=== PATIENT | female | born 1950 | race Caucasian/White ===

== ENCOUNTER 2017-04-28 13:37 | Emergency (ER) ==
[2017-04-28 13:45] VITALS: BP 126/69; TEMP 98; BMI 24.4
--- NOTE | 2017-04-28 14:46 | ED.PDOC ---
General ED Provider: Dr. ESTEVAN SHIRLEY Chief Complaint: Extremity Swelling/Pain Stated Complaint: Recently has lt hip surgery and is in assisted for rehab. Has developed swelling in rt leg. Sent to ER for evaluation of swelling and to r /o DVT. Denies significant pain Time Seen by Physician: 14:00 Mode of Arrival: Ambulance Information Source: Alf, EMT Exam Limitations: No limitations Primary Care Provider: ESTEVAN CHEUNG Nursing and Triage Documentation Reviewed and Agree: Yes Reviewed sepsis parameters & appropriate labs ordered?: Yes System Inflammatory Response Syndrome: Not Applicable Sepsis Protocol: For patient's 13 years and over: Temp is 96.8 and below OR 101 and greater Pulse >90 BPM Resp >20/minute Acutely Altered Mental Status Are patient's symptoms suggestive of a new infection, such as: -Pneumonia -Skin, Soft Tissue -Endocarditis -UTI -Bone, Joint Infection -Implantable Device -Acute Abdominal Infection -Wound Infection -Meningitis -Blood Stream Catheter Infection -Unknown System Inflammatory Response Syndrome: Not Applicable Miscellaneous Complaint Exam - Wound Recheck/Suture Removal Exam Surgical Site: rt hip=well healed Symptoms Are: Resolved Associated Signs and Symptoms: Reports: Swelling (rt leg) Incision: Present: Normal Review of Systems - Review Of Systems Constitutional: Reports: No symptoms Eyes: Reports: No symptoms Ears, Nose, Mouth, Throat: Reports: No symptoms Respiratory: Reports: No symptoms Cardiac: Reports: No symptoms GI: Reports: No symptoms : Reports: No symptoms Musculoskeletal: Reports: No symptoms Skin: Reports: No symptoms Neurological: Reports: No symptoms Endocrine: Reports: No symptoms Hematologic/Lymphatic: Reports: No symptoms All Other Systems: Reviewed and Negative Past Medical History - Past Medical History Previously Healthy: Yes Endocrine: Reports: None Cardiovascular: Reports: None Respiratory: Reports: None Hematological: Reports: None Gastrointestinal: Reports: None Genitourinary: Reports: None Neuro/Psych: Reports: None Musculoskeletal: Reports: None Cancer: Reports: None Last Menstrual Period: menopause - Surgical History General Surgical History: Reports: None - Family History Family History: Reports: None - Social History Smoking Status: Never smoker Hx Substance Use: No Alcohol Screening: None Physical Exam - Physical Exam Appearance: Well-appearing, Obese Ill-appearing: None Pain Distress: None Eyes: ALLEN, EOMI, Conjunctiva clear ENT: Ears normal, Nose normal, Oropharynx normal Neck: Supple Respiratory: Airway patent, Breath sounds clear, Breath sounds equal Cardiovascular: RRR, Pulses normal, No rub, No murmur GI/: Soft, Nontender, No masses Musculoskeletal: Normal strength (Swelling Rt leg distal to knee/tenderness calf HOMANS negative/Pulses intact foot ), ROM intact, No edema Skin: Warm, Dry, Normal color Neurological: Sensation intact, Motor intact Psychiatric: Affect appropriate Interpretation - Radiology Interpretation Radiology Interpretation By: Radiologist Exam Interpreted: Other (Ultrasound doppler flow normal) Re-Evaluation - Re-Evaluation Vital Signs Stable: No Critical Care Note - Critical Care Note Total Time (mins): 0 Course - Course Orders, Labs, Meds: Orders Category Date Time Status ULTRASOUND VENOUS SCAN RT. LEG [U/S VENOUS SCAN RT. LEG RADS 04/28/17 14:44 Completed ] Stat Vital Signs: Temp Pulse Resp BP Pulse Ox 04/28/17 13:37 98 F 67 20 126/69 98 Departure - Departure Time of Disposition: 17:00 Disposition: HOME SELF-CARE Discharge Problem: Right leg swelling Instructions: Leg Edema (ED) Condition: Good Pt referred to PMD for follow-up: Yes IPMP verified?: No Allergies/Adverse Reactions: Allergies No Known Allergies Allergy (Verified 04/28/17 13:49) Home Medications: Ambulatory Orders Furosemide [Lasix] 20 mg PO DAILY #30 tab-cap 08/28/13 Potassium Chloride [K-Dur] 20 meq PO DAILY 03/18/14 Acetaminophen [Tylenol] 650 mg PO Q4H PRN 04/28/17 Aspirin [Adult Low Dose Aspirin EC] 81 mg PO DAILY 04/28/17 Bisacodyl 10 mg RC DAILY PRN 04/28/17 Diphenhydramine HCl [Benadryl] 25 mg PO DIRECTED PRN 04/28/17 Magnesium Hydroxide [Milk of Magnesia] 30 ml PO ONCE PRN 04/28/17 Promethazine HCl [Phenergan Tab] 25 mg PO Q6H PRN 04/28/17 Tramadol HCl [Ultram] 50 mg PO BID PRN 04/28/17 Disposition Discussed With: Patient, Family
--- NOTE | 2017-04-28 15:39 | US ---
Exam: Bahena-scale and color Doppler ultrasonographic evaluation of the right lower extremity venous s tructures. Comparison: None available. Reason for exam: Swelling in the right leg. Technologist note: Technically difficult examination secondary to soft tissue edema and small vascul arity. FINDINGS: There is flow with compression and augmentation in the right common femoral, greater saphenous, profu nda, superficial femoral, popliteal, peroneal, and anterior tibial veins. The posterior tibial vein on the right is not seen on this examination. Impression: No ultrasonographic evidence of thrombus is seen within the imaged portions of the right lower extrem ity. The right posterior tibial vein was not seen on the examination. Report faxed at 1534 hours on 04/28/2017.
== END 2017-04-28 17:05 | disposition home or self-care (01) ==
LOC: ED 13:37
DX: R60.0 Localized edema (principal); Z98.890 Other specified postprocedural states
CPT/HCPCS: 99282

== ENCOUNTER 2017-07-12 13:10 | Outpatient (CLI) | payer OTHER ==
--- NOTE | 2017-07-12 13:51 | DI ---
EXAM: Three views of the right elbow. History: Right elbow pain. Findings: No acute fracture or dislocation. Joint spaces are relatively preserved. No soft tissue foreign bodies. Enthesiopathy of the lateral humeral epicondyle. Impression: No acute osseous abnormality
== END 2017-07-12 13:11 | disposition home or self-care (01) ==
LOC: RAD 13:10
PROVIDERS: ATTEND Family Medicine
DX: M25.521 Pain in right elbow (principal)

== ENCOUNTER 2023-07-27 22:10 | Observation (INO) ==
--- NOTE | 2023-07-27 22:20 | ED.PDOC ---
General ED Provider: Dr. CRISTOFER BOYD DO Chief Complaint: Fall Stated Complaint: 73-year-old female presents to the ER via EMS after reported fall. Complains of bilateral hip pain. She reports she was getting up to go to the bathroom and when she was trying to ambulate which she has trouble doing due to baseline disabilities, she lost her balance and fell. She denies hitting her head or loss of consciousness. She states that since that time she has urinated on herself because she did not ever go to the bathroom. Denies saddle anesthesia, bowel incontinence or urinary retention. Denies other extremity pain. Time Seen by Provider: 07/27/23 22:13 Mode of Arrival: Ambulance Primary Care Provider: ESTEVAN CHEUNG Nursing and Triage Documentation Reviewed and Agree: Yes What is Opioid Naive?: *Opioid Naive implies the patient is not already taking opioids or not chronically receiving opioids on a daily basis. *PRN dosing is not "usually" associated with tolerance. *Patients are at higher risk of over-sedation and aspiration. What is Opioid Tolerant?: *Opioid Tolerance implies less than the expected response to an opioid. *Acquired tolerance is defined by the patient taking 60mg of oral morphine daily (or equianalgesic dose of another opioid) for 1 week or more. *Often associated with chronic pain. *May take more than usual dose to achieve desired pain control. Review of Systems Review Of Systems Constitutional: Reports No symptoms All Other Systems: Reviewed and Negative [facility] Medical History (Updated 07/28/23 @ 00:27 by CRISTOFER BOYD DO) Cerebral palsy G80.9 - Cerebral palsy, unspecified (ICD-10) Hypertension I10 - Essential (primary) hypertension (ICD-10) Fibrocystic breast disease N60.19 - Diffuse cystic mastopathy of unspecified breast (ICD-10) Colonoscopy planned Hip replacement planned Lower extremity surgery planned Family History Mother Cancer Social History Smoking and tobacco status: Never smoker Female Reproductive History Menstrual Hx Hysterectomy: No Hx Tubal Ligation: No Physical Exam Physical Exam Appearance: Reports Well-appearing and Well-nourished Pain Distress: Mild Eyes: Reports EOMI and Conjunctiva clear ENT: Reports Oropharynx normal Neck: Supple Respiratory: Reports Airway patent and Respirations nonlabored Cardiovascular: Reports RRR and Pulses normal Musculoskeletal: Reports Other (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) Skin: Reports Warm, Dry and Normal color Neurological: Reports Sensation intact, Motor intact, Reflexes intact, Alert and Oriented Psychiatric: Reports Affect appropriate and Mood appropriate Course Course Orders, Labs, Meds: Lab Review 07/27/23 23:45 Urine Color Light Urine Clarity Cloudy Urine pH 5.5 Ur Specific Severy 1.010 Urine Protein Negative Urine Glucose (UA) Negative Urine Ketones Negative Urine Blood Trace-intact H Urine Nitrite Negative Urine Bilirubin Negative Urine Urobilinogen 0.2 Ur Leukocyte Esterase Negative Urine Microscopic RBC 2-5 Ur Squamous Epith Cells Tntc Orders Category Date Time Status URINALYSIS C & S IF INDICATED Stat LAB 07/27/23 23:45 Completed Morphine Sulfate [Morphine 4 mg/ml Syringe] Meds 07/27/23 23:00 Discontinued 4 mg IM ONCE ONE Ondansetron [Zofran Odt] Meds 07/27/23 22:44 Discontinued 4 mg PO ONCE STA CT CERVICAL SPINE W/O CONTRAST Stat RADS 07/27/23 22:[address] HEAD W/O CONTRAST Stat RADS 07/27/23 22:[address] LUMBAR SPINE W/O CONTRAST Stat RADS 07/27/23 22:[address] PELVIS W/O CONTRAST Stat RADS 07/27/23 22:13 Completed Medications Discontinued Medications Generic Name Dose Route Start Last Admin Trade Name Freq PRN Reason Stop Dose Admin Morphine Sulfate 4 mg 07/27/23 23:00 07/27/23 23:07 Morphine Sulfate 4 Mg/Ml Syringe IM 07/27/23 23:01 4 mg ONCE ONE Administration Ondansetron HCl 4 mg 07/27/23 22:44 07/27/23 23:07 Ondansetron Hcl 4 Mg Tab.Rapdis PO 07/27/23 22:45 4 mg ONCE STA Administration Vital Signs: Temp Pulse Resp BP Pulse Ox 07/27/23 22:11 98.0 F 76 18 152/92 H 98 Discharge Plan Discharge Patient Disposition: PLACED OBSERVATION Discharge Problem: Fall, Contusion of hip, Low back sprain, Cerebral palsy, Acute pain due to injury Prescriptions: No Action furosemide [Lasix] 20 MG tablet 20 mg PO DAILY Qty: 30 ibuprofen 100 mg/5 mL Suspension 200 mg PO Q6H PRN (Reason: headache/fever) potassium chloride 20 mEq tablet,ER particles/crystals 20 meq PO DAILY furosemide 10 mg/mL solution 20 mg PO DAILY diphenhydramine HCl [Benadryl] 25 MG capsule 25 mg PO DIRECTED PRN (Reason: Allergy Symptoms) Did you review [place] [employer] for ALL controlled substances?: Not Applicable ED Provider: CRISTOFER BOYD Condition: Stable Physician Progress Note: 73-year-old female presents via EMS after what sounds like a mechanical fall. She has baseline disability and contractures making her physical exam difficult. She has bilateral hip pain and low back pain. Will evaluate with head CT, cervical CT, lumbar and pelvic CT. She arrives in a c-collar and will keep this in place as I cannot reliably clear her clinically. She is otherwise afebrile nontoxic doubt infectious etiology. Nonfocal neuro exam otherwise although this is also difficult due to her baseline disability 0023: Having to give the patient a second dose of narcotic pain medicine to keep her pain under control. She is unable to lie flat. Any transition in the bed she grimaces intensely. Urine is negative. I had a long discussion with the family and I am concerned because the home situation apparently is her aunt and uncle that she lives with, both of which are in their 80s with limited mobility, are her caretakers where in this patient also has significant challenges and safety concerns around the house. She normally uses a walker, not a rollator, [facility] This is what she also uses around the home. I do not feel that she would be able to do this reliably and would pose significant risk for another fall and my concern with the aunt and uncle and their ability to pick her up or respond to an emergency. Incontinence and other concerns within also be included if the patient is immobile and has risk of causing other illnesses or sequelae. I have spoken with the family regarding admissions for pain control and that I will try to do this with the hospitalist service. I have also had a discussion that I think it would be advantageous for case management or social work to offer advice in the care and checking in on this patient. Furthermore, this patient has chronic pain and I had a discussion regarding expectations of goals of care and endpoints for her hospitalization and that pain may not be resolved completely given her chronic pain baseline, but that we would like to try and help with her acute pain phase and get some advice from our manager social services. Likely, and graciously, the hospital service has agreed to admit for pain control tonight.
[2023-07-27] MEDS ORDERED: NORCO 10-325 PO STA (22:44)
--- NOTE | 2023-07-27 23:03 | CT ---
EXAM: CT OF THE CERVICAL SPINE WITHOUT CONTRAST History: Neck trauma. Technique: Multiplanar CT images through the cervical spine were obtained without the administration of IV contrast FINDINGS: The visualized airway remains patent. Visualized upper lungs are clear. No acute fracture or subluxation of the cervical spine. No prevertebral soft tissue swelling. Prede ntal space is not widened. No suspicious lytic or blastic osseous lesions. Moderate to severe disc space narrowing at C5-6 and C6-7 with endplate sclerosis and osteophyte formation. Bony spinal canal is not significantly compromised. Moderate to severe multilevel bilateral neural foraminal narrowin g secondary to uncovertebral and facet hypertrophy. Impression: No acute osseous abnormality of the cervical spine All CT scans are performed using dose optimization techniques as appropriate to the performed exam an d include at least one of the following: Automated exposure control, adjustment of the mA and/or kV according t o size, and the use of iterative reconstruction technique.
--- NOTE | 2023-07-27 23:04 | CT ---
EXAM: CT OF THE HEAD WITHOUT CONTRAST History: Head trauma. Technique: Multiplanar CT images through the head were obtained without the administration of IV con trast FINDINGS: The visualized paranasal sinuses and mastoid air cells are clear in general. No acute anna varial abnormalities. Intracranially the ventricular and cisternal spaces are normal in size, shape and configuration for a patient of this age. No dominant mass or midline shift. No hydrocephalous. No acute intracranial hemorrhage or abnormal extraaxial fluid collections. Impression: No acute intracranial process All CT scans are performed using dose optimization techniques as appropriate to the performed exam an d include at least one of the following: Automated exposure control, adjustment of the mA and/or kV according t o size, and the use of iterative reconstruction technique.
[2023-07-27] MEDS: MORPHINE 4 MG/ML SYRINGE IM ONE (23:07)
[2023-07-27] MEDS: ZOFRAN ODT PO STA (23:07)
--- NOTE | 2023-07-27 23:21 | CT ---
EXAM: CT SCAN PELVIS WITHOUT CONTRAST HISTORY: Fall COMPARISON: None. FINDINGS: Helically acquired axial images obtained through the pelvis utilizing 2 meters collimation . Sagittal and coronal reconstructions were imaged and reviewed. There is diverticulosis without div erticulitis. There is no free fluid. The bladder is small volumed limiting evaluation.. There is a n intact right hip arthroplasty. There is no acute fracture or dislocation. IMPRESSION: No acute findings. All CT scans are performed using dose optimization techniques as appropriate to the performed exam an d include at least one of the following: Automated exposure control, adjustment of the mA and/or kV according t o size, and the use of iterative reconstruction technique.
--- NOTE | 2023-07-27 23:25 | CT ---
EXAM: CT OF THE LUMBAR SPINE WITHOUT CONTRAST History: Back trauma. Technique: Multiplanar CT images through the lumbar spine were obtained without the administration o f IV contrast FINDINGS: Osteopenia. No acute fracture or subluxation of the lumbar spine. No suspicious lytic or blastic osseous lesions. Severe disc space narrowing at L4-5. Chronic compression deformity at L4. No suspicious lytic or blastic osseous lesions. Severe central canal stenosis at L4-L5. Moderate to severe bilateral neural foraminal narrowing at L4-L5, L5-S1 secondary to ligamentous and facet hyp ertrophy. Impression: No acute osseous abnormality of the lumbar spine All CT scans are performed using dose optimization techniques as appropriate to the performed exam an d include at least one of the following: Automated exposure control, adjustment of the mA and/or kV according t o size, and the use of iterative reconstruction technique.
[2023-07-27 23:52] LABS: BILIRUBIN,URINE Negative (NEGATIVE); CLARITY,URINE Cloudy (CLEAR); COLOR,URINE Light (YELLOW); GLUCOSE, URINE (UA) Negative (NEGATIVE); KETONES,URINE Negative (NEGATIVE); LEUKOCYTE ESTERASE ,URINE Negative (NEGATIVE); NITRITE,URINE Negative (NEGATIVE); PH,URINE 5.5 (5-9); PROTEIN,URINE Negative (NEGATIVE); URINE, BLOOD Trace-intact (NEGATIVE); UROBILINOGEN,URINE 0.2 (0.2)
[2023-07-27 23:56] LABS: SQUAMOUS EPITHELIAL CELL,UR TNTC (0-5)
[2023-07-28] MEDS ORDERED: ZOFRAN 4 MG/2 ML IVP PRN (00:32)
[2023-07-28] MEDS ORDERED: MORPHINE 2 MG/ML SYRINGE IVP PRN (00:32)
[2023-07-28 00:55] LABS: BASOPHILS % (AUTO) 0.2 % (0.0-3.0); EOSINOPHILS % (AUTO) 0.2 % (0.0-7.0); HEMATOCRIT 41.4 % (37.0-47.0); HEMOGLOBIN 12.8 g/dl (12.0-16.0); IMMATURE GRANULOCYTE # (AUTO) 0.1 (0.0-1.0); IMMATURE GRANULOCYTE % (AUTO) 0.6 % (0.0-5.0); LYMPHOCYTES # (AUTO) 1.3 K/uL (0.60-3.4); MEAN CORPUSCULAR HEMOGLOBIN 26.2 pg (27.0-31.0); MEAN CORPUSCULAR HGB CONC 30.9 (31.8-35.4); MEAN CORPUSCULAR VOLUME 84.7 fl (81.0-99.0); MONOCYTES # (AUTO) 0.7 K/uL (0.4-2.0); MONOCYTES % (AUTO) 5.1 (0-10); NEUTROPHILS # (AUTO) 10.6 K/ul (2.0-6.9); NEUTROPHILS % (AUTO) 83.9 % (42.2-75.2); PLATELET COUNT 232 10^3/uL (140-440); RDW COEFFICIENT OF VARIATION 13.5 % (11.6-14.8); RED BLOOD COUNT 4.89 10^6/ul (4.20-5.40); WHITE BLOOD COUNT 12.69 K/ul (4.6-10.2)
[2023-07-28] MEDS: TORADOL IVP STA (00:57)
[2023-07-28] MEDS: MORPHINE 4 MG/ML SYRINGE IVP ONE (00:59)
[2023-07-28 01:06] LABS: SARS COV-2 RNA RAPID NAAT NEGATIVE (NEGATIVE)
[2023-07-28 01:17] LABS: ALANINE AMINOTRANSFERASE 35.2 U/L (0-35); ALBUMIN 4.17 g/dL (3.5-5.0); ALKALINE PHOSPHATASE 155.3 U/L (53-141); ASPARTATE AMINO TRANSFERASE 43.8 U/L (14-36); BILIRUBIN,TOTAL 0.49 mg/dL (0.2-1.3); BLOOD UREA NITROGEN 18.7 mg/dL (7-17); CARBON DIOXIDE 28.1 mmol/L (22-30.0); CHLORIDE 105.2 mmol/L (98-107); CREATININE 0.67 mg/dL (0.60-1.30); GLUCOSE 124.2 mg/dL (74-106); POTASSIUM 3.43 mmol/L (3.5-5.1); SODIUM 140.4 mmol/L (134.5-145); TOTAL PROTEIN 7.34 g/dL (6.3-8.2)
[2023-07-28] MEDS: VERSED IVP STA (01:41)
[2023-07-28 02:19] VITALS: BMI 20.5
[2023-07-28 05:06] LABS: BASOPHILS % (AUTO) 0.2 % (0.0-3.0); EOSINOPHILS % (AUTO) 0.2 % (0.0-7.0); HEMATOCRIT 38.7 % (37.0-47.0); HEMOGLOBIN 11.9 g/dl (12.0-16.0); IMMATURE GRANULOCYTE # (AUTO) 0.1 (0.0-1.0); IMMATURE GRANULOCYTE % (AUTO) 0.5 % (0.0-5.0); LYMPHOCYTES # (AUTO) 1.4 K/uL (0.60-3.4); LYMPHOCYTES % (AUTO) 14.1 (10.0-50.0); MEAN CORPUSCULAR HEMOGLOBIN 26.3 pg (27.0-31.0); MEAN CORPUSCULAR HGB CONC 30.7 (31.8-35.4); MEAN CORPUSCULAR VOLUME 85.4 fl (81.0-99.0); MONOCYTES # (AUTO) 0.7 K/uL (0.4-2.0); MONOCYTES % (AUTO) 6.5 (0-10); NEUTROPHILS # (AUTO) 7.9 K/ul (2.0-6.9); NEUTROPHILS % (AUTO) 78.5 % (42.2-75.2); PLATELET COUNT 210 10^3/uL (140-440); RDW COEFFICIENT OF VARIATION 13.6 % (11.6-14.8); RED BLOOD COUNT 4.53 10^6/ul (4.20-5.40); WHITE BLOOD COUNT 10.01 K/ul (4.6-10.2)
[2023-07-28 05:17] LABS: BLOOD UREA NITROGEN 19.3 mg/dL (7-17); CALCIUM 9.07 mg/dL (8.4-10.2); CARBON DIOXIDE 31.7 mmol/L (22-30.0); CHLORIDE 104.1 mmol/L (98-107); CREATININE 0.75 mg/dL (0.60-1.30); GLUCOSE 117.3 mg/dL (74-106); POTASSIUM 3.87 mmol/L (3.5-5.1); SODIUM 141.5 mmol/L (134.5-145)
--- NOTE | 2023-07-28 09:59 | PCM.SS ---
Provider Provider: ZAINAB STEINBERG, [facility] Admission Date Admission Date: 07/28/23 Discharge Date Discharge Date: 07/28/23 Primary Care Physician Primary Care Physician: ESTEVAN CHEUNG Chief Complaint Reason For Visit: ACUTE PAIN,CEREAL PALSY,INTRACTABLE PAIN History of Present Illness History of Present Illness: Admitted 07/28/23 01:12, this 73 year old /WHITE/F presented to the ER following and ground level fall that was sustained when she was ambulating down the donald to the bathroom. Denies hitting her head. Has pmh of cerebral palsy and has difficulties with mobility. States she uses a walker at home. Has not done PT/OT in a few years. While in ER, she was having significant back pain and required multiple doses of morphine prior to admission. Admitted to med/surg observation for pain control and protective services social worker to setup home health. [facility] Medical History Carpal tunnel syndrome of left wrist G56.02 - Carpal tunnel syndrome, left upper limb (ICD-10) Carpal tunnel syndrome of right wrist G56.01 - Carpal tunnel syndrome, right upper limb (ICD-10) Cerebral palsy G80.9 - Cerebral palsy, unspecified (ICD-10) Hypertension I10 - Essential (primary) hypertension (ICD-10) Fibrocystic breast disease N60.19 - Diffuse cystic mastopathy of unspecified breast (ICD-10) Colonoscopy planned Hip replacement planned Lower extremity surgery planned Surgical History History of right hip replacement Z96.641 - Presence of right artificial hip joint (ICD-10) Family History Mother Cancer Social History Smoking and tobacco status: Never smoker Medications Mecications: Medications at Discharge (Home Meds & RX) furosemide 20 mg tablet (Lasix) 20 mg PO DAILY #30 tab-caps 08/28/13 diphenhydramine HCl 25 mg capsule (Benadryl) 25 mg PO DIRECTED PRN Allergy Symptoms 04/28/17 ibuprofen 100 mg/5 mL oral suspension 200 mg PO Q6H PRN headache/fever 09/09/19 furosemide 10 mg/mL oral solution 20 mg PO DAILY 07/27/23 potassium chloride 20 mEq tablet,extended release(part/cryst) 20 meq PO DAILY 07/27/23 Allergies Allergies Allergy/AdvReac Type Severity Reaction Status Date / Time niacin AdvReac Mild Verified 07/27/23 22:28 Review of Systems Constitutional: Reports No symptoms Head: Reports Normocephalic Eyes: Reports No symptoms Ears: Reports No symptoms Nose: Reports No symptoms Mouth: Reports No symptoms Throat: Reports No symptoms Cardiovascular: Reports No symptoms Respiratory: Reports No symptoms Gastrointestinal: Reports No symptoms Genitourinary: Reports No Symptoms Musculoskeletal: Reports Back Pain and Other (low back spasms) Endocrine: Reports No symptoms Hematology: Reports No symptoms Immunology: Reports No symptoms Neurological: Reports No symptoms Psychiatric: Reports No symptoms Physical Examination Appearance: Positive No Apparent Distress and Alert and Oriented x3 Head: Positive Normocephalic Neck: Positive Supple and Non-Tender Heart: Positive RRR and No Murmurs Respiratory: Positive Airway patent, Breath Sounds Clear, Bilaterally, Breath Sounds Equal and Respirations Nonlabored GI/: Positive Soft, Nontender, Bowel sounds normal and No Distention Extremities: Positive Pedal Pulses Palpable Bilaterally and Other (contractures to all extremities) Neurological: Positive Sensation Intact and Motor Intact Additional Findings: tenderness to low back Vital Signs (Last 4 Hours) Vital Signs Last 4 Hours: Vital Signs: Last 4 Hours 07/28/23 07:00 07/28/23 07:50 07/28/23 08:00 Respiratory Rate 16 Oxygen Delivery Method Room Air Room Air Room Air 07/28/23 09:00 Respiratory Rate Oxygen Delivery Method Room Air Labs This Visit Labs This Visit: Labs This Visit 07/27/23 07/28/23 07/28/23 23:45 00:31 00:45 WBC 12.69 H RBC 4.89 Hgb 12.8 Hct 41.4 MCV 84.7 MCH 26.2 L MCHC 30.9 L RDW Coeff of Domonique 13.5 Plt Count 232 Immature Gran % (Auto) 0.6 Neut % (Auto) 83.9 H Lymph % (Auto) 10.0 Sargent % (Auto) 5.1 Eos % (Auto) 0.2 Baso % (Auto) 0.2 Neut # (Auto) 10.6 H Lymph # (Auto) 1.3 Sargent # (Auto) 0.7 Eos # (Auto) 0.0 Baso # (Auto) 0.0 Immature Gran # (Auto) 0.1 Sodium 140.4 Potassium 3.43 L Chloride 105.2 Carbon Dioxide 28.1 Anion Gap 10.53 BUN 18.7 H Creatinine 0.67 Estimated GFR (MDRD) 86.00 BUN/Creatinine Ratio 27.91 Glucose 124.2 H Calcium 9.00 Total Bilirubin 0.49 AST 43.8 H ALT 35.2 H Alkaline Phosphatase 155.3 H Total Protein 7.34 Albumin 4.17 Globulin 3.17 Albumin/Globulin Ratio 1.31 Urine Color Light Urine Clarity Cloudy Urine pH 5.5 Ur Specific Shannon 1.010 Urine Protein Negative Urine Glucose (UA) Negative Urine Ketones Negative Urine Blood Trace-intact H Urine Nitrite Negative Urine Bilirubin Negative Urine Urobilinogen 0.2 Ur Leukocyte Esterase Negative Urine Microscopic RBC 2-5 Ur Squamous Epith Cells Tntc SARS CoV-2 RNA Rapid QUINTEN Negative 07/28/23 04:51 WBC 10.01 RBC 4.53 Hgb 11.9 L Hct 38.7 MCV 85.4 MCH 26.3 L MCHC 30.7 L RDW Coeff of Domonique 13.6 Plt Count 210 Immature Gran % (Auto) 0.5 Neut % (Auto) 78.5 H Lymph % (Auto) 14.1 Sargent % (Auto) 6.5 Eos % (Auto) 0.2 Baso % (Auto) 0.2 Neut # (Auto) 7.9 H Lymph # (Auto) 1.4 Sargent # (Auto) 0.7 Eos # (Auto) 0.0 Baso # (Auto) 0.0 Immature Gran # (Auto) 0.1 Sodium 141.5 Potassium 3.87 Chloride 104.1 Carbon Dioxide 31.7 H Anion Gap 9.57 BUN 19.3 H Creatinine 0.75 Estimated GFR (MDRD) 76.00 BUN/Creatinine Ratio 25.73 Glucose 117.3 H Calcium 9.07 Total Bilirubin AST ALT Alkaline Phosphatase Total Protein Albumin Globulin Albumin/Globulin Ratio Urine Color Urine Clarity Urine pH Ur Specific Shannon Urine Protein Urine Glucose (UA) Urine Ketones Urine Blood Urine Nitrite Urine Bilirubin Urine Urobilinogen Ur Leukocyte Esterase Urine Microscopic RBC Ur Squamous Epith Cells SARS CoV-2 RNA Rapid QUINTEN Imaging Imaging: EXAM: CT OF THE CERVICAL SPINE WITHOUT CONTRAST History: Neck trauma. Technique: Multiplanar CT images through the cervical spine were obtained without the administration of IV contrast FINDINGS: The visualized airway remains patent. Visualized upper lungs are clear. No acute fracture or subluxation of the cervical spine. No prevertebral soft tissue swelling. Predental space is not widened. No suspicious lytic or blastic osseous lesions. Moderate to severe disc space narrowing at C5-6 and C6-7 with endplate sclerosis and osteophyte formation. Bony spinal canal is not significantly compromised. Moderate to severe multilevel bilateral neural foraminal narrowing secondary to uncovertebral and facet hypertrophy. Impression: No acute osseous abnormality of the cervical spine EXAM: CT OF THE HEAD WITHOUT CONTRAST History: Head trauma. Technique: Multiplanar CT images through the head were obtained without the administration of IV contrast FINDINGS: The visualized paranasal sinuses and mastoid air cells are clear in general. No acute calvarial abnormalities. Intracranially the ventricular and cisternal spaces are normal in size, shape and configuration for a patient of this age. No dominant mass or midline shift. No hydrocephalous. No acute intracranial hemorrhage or abnormal extraaxial fluid collections. Impression: No acute intracranial process EXAM: CT OF THE LUMBAR SPINE WITHOUT CONTRAST History: Back trauma. Technique: Multiplanar CT images through the lumbar spine were obtained without the administration of IV contrast FINDINGS: Osteopenia. No acute fracture or subluxation of the lumbar spine. No suspicious lytic or blastic osseous lesions. Severe disc space narrowing at L4-5. Chronic compression deformity at L4. No suspicious lytic or blastic osseous lesions. Severe central canal stenosis at L4-L5. Moderate to severe bilateral neural foraminal narrowing at L4-L5, L5-S1 secondary to ligamentous and facet hypertrophy. Impression: No acute osseous abnormality of the lumbar spine EXAM: CT SCAN PELVIS WITHOUT CONTRAST HISTORY: Fall COMPARISON: None. FINDINGS: Helically acquired axial images obtained through the pelvis utilizing 2 meters collimation. Sagittal and coronal reconstructions were imaged and reviewed. There is diverticulosis without diverticulitis. There is no free fluid. The bladder is small volumed limiting evaluation.. There is an intact right hip arthroplasty. There is no acute fracture or dislocation. IMPRESSION: No acute findings. Review Review Statement: I have independently reviewed and interpreted the labs/EKGs/imaging that were ordered by the ER provider. I have reviewed all outside records that are available currently in our EMR including imaging/notes/labs from previous visits. Plan Reccomendations/Plan: 1. Intractable pain secondary to ground level fall - morphine ordered Q4H prn, took 1 dose last night, slept well per patient, has not required additional, d/c with muscle relaxer and recommend tylenol and ibuprofen for pain 2. Cerebral Palsy - recent fall, would benefit from PT/OT for strengthening in order to prevent further falls/injury Additional Planning: Case discussed with ED Physician, Dr. Shea. DVT Prophylaxis: Ambulation Disposition: Admit to: Med/Surg Observation Full Code Discussed Plan of Care with Dr. Doreen Reece If patient discharged with Left Ventricular Systolic Dysfunction: NA Discharged with a beta maia? [] If no, why not? [] Discharged with an carmen/arb? [] If no, why not? [] Diagnosis: Intractable pain secondary to ground level fall Diet: Regular Activity: As tolerated, PT/OT Follow-up with PCP next week. Medications: Tylenol and ibuprofen for pain/inflammation Zanaflex every 8 hours as needed for pain/muscle spasms Review With Patient Reviewed with Patient and Family: Patient and family have been counseled on condition and care plan and have no immediate questions. I have personally discussed and reviewed the patient's visit/current labs/imaging/decision making with Dr. Essence Reece, my supervising attending. Total number of minutes spent with patient 85 min. More than 50% of the time spent with this patient was devoted to counseling and coordination of care. Time of Admission:07/28/23 01:12 Time of Discharge: 07/28/23 10:00 Discharge Plan Discharge Discharge Orders: Discharge Patient (ONCE); Ordered 07/28/23 Ordered By: CARLIE SANDS Activity Restrictions/Additional Instructions: Diagnosis: Acute Pain from fall Diet: Regular Activity: As tolerated, PT/OT Follow-up with PCP next week. Medications: Tylenol and ibuprofen for pain/inflammation Zanaflex every 8 hours as needed for pain/muscle spasms Instructions: Back Pain (GEN) Patient Disposition: HOME WITH FAMILY CARE Prescriptions: New tizanidine [Zanaflex] 4 mg capsule 4 mg PO Q8H PRN (Reason: muscle spasticity) Qty: 20 0RF Continued ibuprofen 100 mg/5 mL Suspension 200 mg PO Q6H PRN (Reason: headache/fever) potassium chloride 20 mEq tablet,ER particles/crystals 20 meq PO DAILY furosemide 10 mg/mL solution 20 mg PO DAILY diphenhydramine HCl [Benadryl] 25 MG capsule 25 mg PO DIRECTED PRN (Reason: Allergy Symptoms) Discontinued furosemide [Lasix] 20 MG tablet 20 mg PO DAILY Qty: 30 Did you review [place] [employer] for ALL controlled substances?: No Discussed opioids are addictive and Narcan is available by prescription or from pharmacy.: No Condition: Stable Referrals: ESTEVAN CHEUNG MD [Primary Care Provider] - 08/03/23 10:30 am
[2023-07-28 10:00] VITALS: BP 110/64; PULSE 57; RESP 13; TEMP 97.9
[2023-07-28] MEDS: MOTRIN PO ONE (11:48)
[2023-07-28] MEDS: ZANAFLEX PO ONE (11:48)
== END 2023-07-28 12:00 | disposition home or self-care (01) ==
LOC: ED 22:10 → MEDSURG B 22:10
PROVIDERS: ADMIT Hospitalist; ATTEND Nurse Practitioner Family
DX: M54.50 Low back pain, unspecified; S70.00XA Contusion of unspecified hip, initial encounter; M62.49 Contracture of muscle, multiple sites; R26.2 Difficulty in walking, not elsewhere classified; G80.9 Cerebral palsy, unspecified; Z20.822 Contact with and (suspected) exposure to COVID-19; G89.29 Other chronic pain; S33.5XXA Sprain of ligaments of lumbar spine, initial encounter; W19.XXXA Unspecified fall, initial encounter; M25.551 Pain in right hip; M25.552 Pain in left hip